=== PATIENT | female | born 1980 | race Caucasian/White ===

== ENCOUNTER → 2016-03-28 | Outpatient (CLI) | payer BC ==
--- NOTE | 2016-03-28 19:23 | REP ---
RIGHT KNEE, SIX VIEWS: HISTORY: Sprain. There is no acute fracture or dislocation. The joint spaces are normal in appearance. IMPRESSION: There is no acute fracture or dislocation . Signed by Ramin Mann MD 03/28/2016 07:25 P
== END ==
LOC: M WUC 18:02
PROVIDERS: ATTEND Physician Assistant
DX: S83.411A Sprain of medial collateral ligament of right knee, initial encounter (principal); X58.XXXA Exposure to other specified factors, initial encounter; Y92.89 Other specified places as the place of occurrence of the external cause; Y93.89 Activity, other specified; Y99.8 Other external cause status

== ENCOUNTER → 2016-04-10 | Outpatient (RCR) | payer BC | LOC: M PT 07:40 | PROVIDERS: ATTEND Orthopaedic Surgery | DX: Z51.89 Encounter for other specified aftercare (principal); S83.91XA Sprain of unspecified site of right knee, initial encounter; X58.XXXA Exposure to other specified factors, initial encounter; Y92.89 Other specified places as the place of occurrence of the external cause; Y93.89 Activity, other specified; Y99.8 Other external cause status ==

== ENCOUNTER 2016-05-03 07:00 | Outpatient (RCR) | payer BC | END 2016-05-11 | LOC: M PT 07:00 | PROVIDERS: ATTEND Orthopaedic Surgery | DX: Z47.89 Encounter for other orthopedic aftercare (principal); S83.91XD Sprain of unspecified site of right knee, subsequent encounter; X58.XXXD Exposure to other specified factors, subsequent encounter; Y92.89 Other specified places as the place of occurrence of the external cause ==

== ENCOUNTER → 2017-01-15 | Outpatient (CLI) | payer BC ==
--- NOTE | 2017-01-18 15:10 | SLEEPCENT ---
DATE OF PROCEDURE: 01/15/2017 REFERRING PHYSICIAN: Augustina Pierson. INTERPRETATION: Nocturnal polysomnography was performed for assessment of sleep physiology in this patient with a history of excessive somnolence and nonrestorative sleep. 7 hours and 57 minutes of data were reviewed. There were 391 minutes of sleep identified. Sleep latency was prolonged at 26 minutes. REM latency was prolonged at 195 minutes. Sleep architecture showed some fragmentation early in the study. Sleep progression was good later in the test. There were three REM cycles. Overall sleep efficiency 84.2%. Electrocardiogram shows a sinus rhythm with minor heart variability. Average heart rate 65 beats per minute. Pulse rate ranged from 58-82. EEG showed reasonably normal waveforms for awake and sleep. There were only 12 respiratory events identified of 10 seconds in duration or greater for an apnea hypopnea index of 1.8. Significant snoring was however, noted through much of the test and respiratory-related arousals occurred 3.5 times per hour when arousals from snoring were included. There was one train of 30 limb events identified and limb movement arousal index was borderline at 6.4. IMPRESSION: 1. Normal nocturnal polysomnography with snoring. 2. 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
== END ==
LOC: M SLEEP 19:40
PROVIDERS: ATTEND Nurse Practitioner Adult Health
DX: G47.61 Periodic limb movement disorder (principal)

== ENCOUNTER → 2017-06-15 | Outpatient (CLI) | payer BC ==
[2017-06-15 15:16] LABS: CHOLESTEROL LEVEL 219 MG/DL (<200); HDL CHOLESTEROL 56 MG/DL (>40); LDL CHOLESTEROL 128.2 MG/DL (<100); NON-HDL-C 163 MG/DL; TRIGLYCERIDES LEVEL 174 MG/DL (<150)
[2017-06-17 10:56] LABS: TOTAL 25(OH) VITAMIN D 8.9 NG/ML (30.0-100.0)
== END ==
LOC: M WUC 12:39
DX: E55.9 Vitamin D deficiency, unspecified (principal); E78.00 Pure hypercholesterolemia, unspecified
CPT/HCPCS: 82306

== ENCOUNTER → 2018-01-31 | Outpatient (CLI) | payer BC ==
[~2018-01-31] MED LIST: E-Z-GAS II EFFERVESCENT PACKET (SODIUM BICARB./CITRIC ACID/SIMETHICONE) As Ordered ONE; E-Z-HD 98% w/w 340GM SUSP BTL As Ordered ONE; E-Z-PAQUE 96% w/w SUSP 176GM BTL As Ordered ONE
--- NOTE | 2018-01-31 17:13 | REP ---
Esophagram The procedure was performed under the direct supervision of Dr. Hodge. The images were reviewed with Dr. Hodge. A single view PA chest x-ray is submitted as a medical leader film. The superior mediastinal structures are midline. The heart size is within normal limits. The lungs are clear. Liquid barium and gas producing granules were given in the erect position as well as liquid barium in the prone oblique positions in order to perform a double contrast esophagram examination. The oral and pharyngeal stages of deglutition demonstrate laryngeal penetration. Esophageal transport is prompt and efficient and there is no esophagitis, stricture, mucosal ring or hiatal hernia. There is mild gastroesophageal reflux demonstrated to below the level of the chana. Impression: 1. There is laryngeal penetration. 2. There is mild gastroesophageal reflux demonstrated to below the level of the chana. One minute of fluoro time was utilized for this procedure. Reviewed by DEWAYNE Lu 01/31/2018 04:43 P Electronically Signed by Aguilar Hodge MD 01/31/2018 05:04 P
== END ==
LOC: M RAD 07:27
DX: R13.10 Dysphagia, unspecified (principal)

== ENCOUNTER → 2018-02-25 | Outpatient (CLI) | payer BC ==
[~2018-02-25] MED LIST changes: -E-Z-GAS II EFFERVESCENT PACKET (SODIUM BICARB./CITRIC ACID/SIMETHICONE) As Ordered ONE; -E-Z-HD 98% w/w 340GM SUSP BTL As Ordered ONE; -E-Z-PAQUE 96% w/w SUSP 176GM BTL As Ordered ONE; +ISOVUE-370 76% 100ML VIAL (Q9967) As Ordered ONE
--- NOTE | 2018-02-26 08:19 | REP ---
CT NECK WITH CONTRAST: HISTORY: Dysphagia. CONTRAST: Isovue 370, 75 mL. Calcification in present in the left tonsil. This secondary to previous inflammatory disease. The naso-, amina- and hypopharynx, larynx and subglottic trachea are otherwise normal in appearance. The salivary and thyroid glands are normal in size and density. Small lymph nodes less than 1 cm in size are present in the internal jugular chains, posterior triangles, submandibular and submental areas. The lung apices are clear. The visualized sinuses are clear. IMPRESSION: There is no neck mass or adenopathy. Electronically Signed by Ramin Mann MD 02/26/2018 08:21 A
== END ==
LOC: M RAD 17:06
DX: R13.10 Dysphagia, unspecified (principal)
CPT/HCPCS: 70491; Q9967

== ENCOUNTER → 2018-04-05 | Outpatient (CLI) | payer BC | LOC: M RAD 11:18 | PROVIDERS: ATTEND Psychiatry & Neurology Neurology | DX: R53.81 Other malaise (principal) ==

== ENCOUNTER → 2018-04-06 | Outpatient (CLI) | payer BC ==
[2018-04-06 12:43] LABS: BASO % 0.3 % (0.0-1.0); EOS # 0.3 10^3/uL (0.0-0.50); EOS % 2.9 % (0.0-3.0); HEMATOCRIT 42.6 % (36.0-47.0); HEMOGLOBIN 13.7 g/dl (12.0-15.5); LYMPH # 2.6 10^3/uL (1.5-4.5); LYMPH % 30.1 % (24.0-44.0); MEAN CORPUSCULAR HEMOGLOBIN 28.4 pg (27.0-33.0); MEAN CORPUSCULAR HGB CONC 32.2 g/dl (32.0-36.5); MEAN CORPUSCULAR VOLUME 88.2 fl (80.0-96.0); MONO # 0.5 10^3/uL (0.0-0.8); MONO % 5.8 % (0.0-5.0); NEUTROPHILS # 5.2 10^3/uL (1.8-7.7); NEUTROPHILS % 60.6 % (36.0-66.0); PLATELET COUNT, AUTOMATED 351 10^3/uL (150-450); RED BLOOD COUNT 4.83 10^6/uL (4.00-5.40); WHITE BLOOD COUNT 8.6 10^3/uL (4.0-10.0)
[2018-04-06 13:22] LABS: ALBUMIN 3.5 GM/DL (3.2-5.2); ALT/SGPT 51 U/L (12-78); BILIRUBIN,TOTAL 0.4 MG/DL (0.2-1.0); BLOOD UREA NITROGEN 10 MG/DL (7-18); CALCIUM LEVEL 9.1 MG/DL (8.5-10.1); CARBON DIOXIDE LEVEL 28 MEQ/L (21-32); CHLORIDE LEVEL 105 MEQ/L (98-107); CPK CREATINE PHOSPHOKINASE 70 U/L (26-192); CREATININE FOR GFR 0.66 MG/DL (0.55-1.30); GLOMERULAR FILTRATION RATE > 60.0 (>60); GLUCOSE, FASTING 85 MG/DL (70-100); POTASSIUM SERUM 4.6 MEQ/L (3.5-5.1); RHEUMATOID FACTOR QUANT < 10.0 IU/ML (<15.0); SODIUM LEVEL 140 MEQ/L (136-145); THYROXINE (T4) 11.5 UG/DL (4.5-12.0); TOTAL PROTEIN 7.2 GM/DL (6.4-8.2)
[2018-04-06 13:33] LABS: ERYTHROCYTE SEDIMENTATION RATE 7 mm/hr (0-20)
[2018-04-07 11:41] LABS: TOTAL T3 136.7 NG/DL (60.0-181.0)
[2018-04-08 10:33] LABS: ANTINUCLEAR ANTIBODIES DIRECT Negative (Negative)
[2018-04-09 00:06] LABS: Lyme Disease IgG/IgM Antibodie <0.91 ISR (0.00-0.90); Lyme Disease IgM Ab Quantitati <0.80 index (0.00-0.79)
== END ==
LOC: M WUC 11:23
PROVIDERS: ATTEND Psychiatry & Neurology Neurology
DX: R53.82 Chronic fatigue, unspecified (principal)

== ENCOUNTER → 2018-04-06 | Outpatient (CLI) | payer BC ==
[2018-04-06 13:21] LABS: CHOLESTEROL RISK RATIO 5.413 (<5); THYROID STIMULATING HORMONE 2.29 uIU/ML (0.358-3.740)
== END ==
LOC: M WUC 11:28
PROVIDERS: ATTEND Family Medicine
DX: R53.83 Other fatigue (principal)

== ENCOUNTER → 2018-04-11 | Outpatient (CLI) | payer BC ==
--- NOTE | 2018-04-29 08:44 | REP ---
MR Brain without contrast HISTORY: Chronic fatigue COMPARISON : None There are no areas of abnormal signal intensity in the brain. There is no intraparenchymal hemorrhage, infarct, mass or midline shift. The ventricular system is normal in appearance. There is no extra cerebral collection. Minimal mucosal thickening is present in the left maxillary sinus. IMPRESSION: There is no intracranial lesion. Electronically Signed by Ramin Mann MD 04/29/2018 08:36 A
== END ==
LOC: M PLARAD 12:59
PROVIDERS: ATTEND Psychiatry & Neurology Neurology
DX: R53.82 Chronic fatigue, unspecified (principal)

== ENCOUNTER → 2019-02-25 | Outpatient (CLI) | payer BC | LOC: M WUC 17:20 | PROVIDERS: ATTEND Nurse Practitioner Family | DX: L64.9 Androgenic alopecia, unspecified (principal) ==

== ENCOUNTER → 2023-12-26 | Outpatient (REF) ==
[2023-12-30 13:54] LABS: QuantiFERON-TB Gold Plus POSITIVE (NEGATIVE)
== END ==
LOC: M RAD 08:16
PROVIDERS: ATTEND Family Medicine
DX: Z02.1 Encounter for pre-employment examination (principal)